=== PATIENT | male | born 1990 | race Caucasian/White ===

== ENCOUNTER 2020-11-03 08:48 | Inpatient (IN) | payer OTHER ==
[~2020-11-03] VITALS: Ht 185.4 cm; Wt 67.4 kg
[2020-11-03] MEDS ORDERED: OXYcodone/APAP 5/325MG TABLET ONE (09:35)
[2020-11-03] MEDS ORDERED: CLINDAMYCIN PMX 600MG/50ML 0 ML ONE (09:36)
[2020-11-03] MEDS ORDERED: ONDANSETRON 2MG/ML, 2ML ONE (09:43)
[2020-11-03 09:48] LABS: BASOPHILS % (AUTO) 1 % (0-1); EOSINOPHILS % (AUTO) 0 % (1-7); LYMPHOCYTES % (AUTO) 14 % (22-44); MEAN PLATELET VOLUME 7.4 fL (7.4-10.4); MONOCYTES % (AUTO) 8 % (2-9); NEUTROPHILS % (AUTO) 77 % (42-75); PLATELET COUNT 272 x10^3/uL (130-400); RED BLOOD COUNT 5.07 x10^6/uL (4.38-5.82); RED CELL DISTRIBUTION WIDTH 13.5 % (9.4-14.8)
[2020-11-03] MEDS ORDERED: CLINDAMYCIN PMX 900MG/50ML 50 ML ONE (09:51)
--- NOTE | 2020-11-03 09:52 | NUR ---
After 2 set of blood cultures drawn-patient medicated with abx, pain medicine and nausea medicine wound redness encircled with skin arker updated on estimated poc
[2020-11-03] MEDS ORDERED: OXYcodone/APAP 5/325MG TABLET PO ONE (10:00)
[2020-11-03] MEDS ORDERED: ONDANSETRON 2MG/ML, 2ML IVPush ONE (10:00)
[2020-11-03] MEDS ORDERED: DIPH,PERTUSS(ACELL),TET VAC/PF 0.5 ML IM-VACC ONE ×2 (10:00→10:15)
[2020-11-03] MEDS ORDERED: CLINDAMYCIN PMX 900MG/50ML 50 ML IV ONE (10:00)
[2020-11-03 10:05] LABS: ALBUMIN 4.1 g/dL (3.4-5.0); ANION GAP 7 mmol/L (5-15); CALCIUM 9.2 mg/dL (8.5-10.1); CHLORIDE 107 mmol/L (98-107); CREATININE 0.94 mg/dL (0.7-1.3)
[2020-11-03 10:13] LABS: ALANINE AMINOTRANSFERASE 19 U/L (12-78); ALKALINE PHOSPHATASE 59 U/L (45-117); BILIRUBIN,TOTAL 0.8 mg/dL (0.2-1.0); TOTAL PROTEIN 7.9 g/dL (6.4-8.2)
[2020-11-03] MEDS ORDERED: ONDANSETRON 2MG/ML, 2ML IVPush PRN (11:00)
[2020-11-03] MEDS: SENNA/DOCUSATE TABLET PO SCH (11:00)
[2020-11-03] MEDS ORDERED: KETOROLAC 30 MG/1 ML IV PRN (11:00)
[2020-11-03] MEDS ORDERED: TRAZODONE 50MG TABLET PO PRN (11:00)
[2020-11-03] MEDS ORDERED: ACETAMINOPHEN 325 MG TABLET PO PRN (11:00)
[2020-11-03] MEDS ORDERED: ENOXAPARIN 40 MG/0.4 ML SQ SCH (11:00)
[2020-11-03] MEDS ORDERED: VANCOMYCIN PER PHARMACY MC PRN (11:00)
[2020-11-03 11:07] VITALS: BP 121/75
[2020-11-03] MEDS ORDERED: PHARMACOKINETIC CONSULTATION MC ONE (12:30)
[2020-11-03] MEDS ORDERED: VANCOMYCIN 1,800 MG in SODIUM CHLORIDE 0.9% 250 ML IV ONE (12:30)
[2020-11-03] MEDS ORDERED: PHARMACOKINETIC MONITORING MC PRN (12:30)
[2020-11-03 12:35] VITALS: BP 116/78
[2020-11-03 13:06] LABS: HCT (SEDRATE) 43.2 % (39.2-51.8)
[2020-11-03 20:24] VITALS: BP 117/76
[2020-11-04 00:48] VITALS: BP 108/66
[2020-11-04] MEDS ORDERED: VANCOMYCIN 1,400 MG in SODIUM CHLORIDE 0.9% 250 ML IV SCH (01:00)
[2020-11-04 05:36] LABS: BASOPHILS % (AUTO) 1 % (0-1); EOSINOPHILS % (AUTO) 0 % (1-7); LYMPHOCYTES % (AUTO) 18 % (22-44); MEAN CORPUSCULAR HEMOGLOBIN 29.1 pg (27.5-34.5); MEAN CORPUSCULAR HGB CONC 33.8 g/dL (33.2-36.2); MEAN PLATELET VOLUME 7.4 fL (7.4-10.4); MONOCYTES % (AUTO) 8 % (2-9); NEUTROPHILS % (AUTO) 73 % (42-75); PLATELET COUNT 253 x10^3/uL (130-400); RED BLOOD COUNT 4.79 x10^6/uL (4.38-5.82)
[2020-11-04 05:50] LABS: ANION GAP 8 mmol/L (5-15); CALCIUM 8.6 mg/dL (8.5-10.1); CHLORIDE 105 mmol/L (98-107); CREATININE 0.91 mg/dL (0.7-1.3)
[2020-11-04 07:27] VITALS: BP 117/73
[2020-11-04] MEDS: SENNA/DOCUSATE TABLET PO SCH (08:23)
[2020-11-04] MEDS: ENOXAPARIN 40 MG/0.4 ML SQ SCH (11:08)
[2020-11-04 12:49] VITALS: BP 111/73
[2020-11-04] MEDS: DAPTOMYCIN 450 MG in SODIUM CHLORIDE 0.9% 100 ML IVPB SCH (13:20)
[2020-11-04 19:40] VITALS: BP 108/67
[2020-11-05 00:30] VITALS: BP 108/70
[2020-11-05 05:42] LABS: BASOPHILS % (AUTO) 1 % (0-1); EOSINOPHILS % (AUTO) 0 % (1-7); LYMPHOCYTES % (AUTO) 18 % (22-44); MEAN CORPUSCULAR HGB CONC 33.6 g/dL (33.2-36.2); MEAN PLATELET VOLUME 7.2 fL (7.4-10.4); MONOCYTES % (AUTO) 7 % (2-9); NEUTROPHILS % (AUTO) 74 % (42-75); PLATELET COUNT 270 x10^3/uL (130-400); RED CELL DISTRIBUTION WIDTH 12.8 % (9.4-14.8)
[2020-11-05 05:48] LABS: ANION GAP 7 mmol/L (5-15); CALCIUM 8.5 mg/dL (8.5-10.1); CHLORIDE 108 mmol/L (98-107); CREATININE 0.81 mg/dL (0.7-1.3)
[2020-11-05 07:31] VITALS: BP 118/73
[2020-11-05] MEDS: SENNA/DOCUSATE TABLET PO SCH (07:45)
[2020-11-05] MEDS: ENOXAPARIN 40 MG/0.4 ML SQ SCH (09:03)
[2020-11-05 13:00] VITALS: BP 120/74
[2020-11-05] MEDS: DAPTOMYCIN 450 MG in SODIUM CHLORIDE 0.9% 100 ML IVPB SCH (13:32)
[2020-11-05 20:22] VITALS: BP 112/72
[2020-11-06 01:18] VITALS: BP 115/75
[2020-11-06 06:31] VITALS: BP 120/76
[2020-11-06] MEDS: SENNA/DOCUSATE TABLET PO SCH (09:00)
[2020-11-06] MEDS: ENOXAPARIN 40 MG/0.4 ML SQ SCH (10:19)
[2020-11-06] MEDS ORDERED: DALB500V IV (11:53)
[2020-11-06 12:45] VITALS: BP 116/75
[2020-11-06] MEDS: DAPTOMYCIN 450 MG in SODIUM CHLORIDE 0.9% 100 ML IVPB SCH (13:42)
== END 2020-11-06 17:39 | disposition home or self-care (01) | DRG 872 ==
LOC: ED 09:26 → EDIP 10:17 → 4NW 10:58
PROVIDERS: ADMIT Internal Medicine; ATTEND Internal Medicine
DX: A41.9 Sepsis, unspecified organism (principal); R26.2 Difficulty in walking, not elsewhere classified; Z60.2 Problems related to living alone; M70.52 Other bursitis of knee, left knee; A49.01 Methicillin susceptible Staphylococcus aureus infection, unspecified site; Z80.1 Family history of malignant neoplasm of trachea, bronchus and lung; Z88.0 Allergy status to penicillin
CPT/HCPCS: 36415; 80048; 80053; 82550; 83605; 85025; 85651; 86140; 87040; 87070; 87077; 87186; 87205; 90471; 90715; 96365; 96375; G0378; J0878; J1650; J1885; J2405; J3370; J7050